=== PATIENT | male | born 1965 | race Two or more races ===

== ENCOUNTER 2022-12-22 17:39 | Inpatient (IN) | payer MEDICAID, OTHER ==
[~2022-12-22] VITALS: Ht 170.2 cm; Wt 63.0 kg
[2022-12-22] MEDS ORDERED: DexAMETHasone SOD PHOS 10MG/1ML VIAL INJ IV ONE (18:30)
[2022-12-22 19:58] LABS: Basophils # (auto) 0 10 ^3/uL (0-0.2); Basophils % (auto) 0.6 % (0.0-2.0); Eosinophils # (auto) 0.1 10 ^3/uL (0-0.8); Eosinophils % (auto) 1.5 % (0.0-7.0); Hematocrit 47.8 % (41.0-53.0); Lymphocytes # (auto) 0.9 10 ^3/uL (0.4-5.4); Lymphocytes % (auto) 17.2 % (10.0-50.0); Mean Corpuscular Hemoglobin 28.6 pg (28.0-32.0); Mean Corpuscular Hgb Conc. 33.5 g/dL (32.0-36.0); Mean Corpuscular Volume 85.6 fL (80.0-100.0); Monocytes # (auto) 0.5 10 ^3/uL (0-1.3); Monocytes % (auto) 8.8 % (0.0-12.0); Neutrophils # (auto) 3.9 10 ^3/uL (1.6-8.6); Neutrophils % (auto) 71.9 % (37.0-80.0); Nucleated Red Blood Cells % 0.2 %; Red Blood Cells 5.58 10^6/uL (4.5-5.90); Red Cell Distribution Width 14.4 % (11.8-14.3); White Blood Cell 5.4 10^3/uL (4.4-10.8)
[2022-12-22 20:14] LABS: Albumin 2.8 g/dL (3.4-5.0); BUN/Creatinine Ratio 19.5; Calcium 9.1 mg/dL (8.5-10.1); Magnesium 1.9 mg/dL (1.6-2.6); Potassium 4.9 mmol/L (3.5-5.1)
[2022-12-22 20:16] LABS: Bilirubin, Total 0.6 mg/dL (0.2-1.0); Total Protein 6.2 g/dL (6.4-8.2)
[2022-12-22] MEDS ORDERED: ONDANSETRON HCL 4 MG/2 ML VIAL IV PRN (21:30)
[2022-12-22 21:48] LABS: INR 1.02 (0.9-1.15); Partial Thromboplastin Time 27.9 sec (24.6-33.4)
[2022-12-22] MEDS ORDERED: ATORVASTATIN 20 MG TAB PO SCH (22:00)
[2022-12-22] MEDS: ACETAMINOPHEN 325 MG TAB PO PRN (22:26)
[2022-12-22 22:56] LABS: Urine Bacteria NONE SEEN /hpf (None Seen); Urine Blood Negative /uL (Negative); Urine Mucus FEW (None Seen); Urine Specific Gravity 1.025 (1.001-1.035); Urine WBC 1 /hpf (0 - 3)
[2022-12-23] MEDS: TEMAZEPAM 15 MG CAP PO PRN (00:17)
[2022-12-23 05:00] VITALS: BP 113/82
[2022-12-23 06:02] LABS: Basophils # (auto) 0 10 ^3/uL (0-0.2); Basophils % (auto) 0.1 % (0.0-2.0); Eosinophils # (auto) 0 10 ^3/uL (0-0.8); Hematocrit 47.1 % (41.0-53.0); Lymphocytes # (auto) 0.5 10 ^3/uL (0.4-5.4); Lymphocytes % (auto) 9.4 % (10.0-50.0); Mean Corpuscular Hemoglobin 29.2 pg (28.0-32.0); Mean Corpuscular Hgb Conc. 33.9 g/dL (32.0-36.0); Mean Corpuscular Volume 86.2 fL (80.0-100.0); Monocytes # (auto) 0.1 10 ^3/uL (0-1.3); Monocytes % (auto) 1.9 % (0.0-12.0); Neutrophils # (auto) 4.8 10 ^3/uL (1.6-8.6); Neutrophils % (auto) 88.6 % (37.0-80.0); Nucleated Red Blood Cells % 0.1 %; Red Blood Cells 5.47 10^6/uL (4.5-5.90); White Blood Cell 5.5 10^3/uL (4.4-10.8)
[2022-12-23 06:11] LABS: Potassium 5.3 mmol/L (3.5-5.1)
[2022-12-23 06:22] LABS: Albumin 2.7 g/dL (3.4-5.0); BUN/Creatinine Ratio 18.7; Bilirubin, Total 0.9 mg/dL (0.2-1.0); Calcium 8.4 mg/dL (8.5-10.1); Total Protein 5.4 g/dL (6.4-8.2)
[2022-12-23 09:00] VITALS: BP 125/70
[2022-12-23] MEDS ORDERED: ASPirin 81 mg TAB PO SCH (10:00)
[2022-12-23] MEDS ORDERED: LISINOPRIL 5 MG TAB PO SCH (10:00)
[2022-12-23 13:00] VITALS: BP 108/68
[2022-12-23] MEDS: ASPirin 81 mg TAB PO SCH (14:51)
[2022-12-23] MEDS ORDERED: SODIUM CHLORIDE 0.9% 1,000 ML IV SCH (15:00)
[2022-12-23 17:00] VITALS: BP 101/51
[2022-12-23] MEDS: SODIUM CHLORIDE 0.9% 1,000 ML IV SCH (19:15)
[2022-12-23] MEDS ORDERED: IOHEXOL 350 MG/ML 100ML IJ ONE (20:19)
[2022-12-23 20:24] LABS: Cholesterol 186 mg/dL (< 200); HDL Cholesterol 55 mg/dL (40-59); LDL Cholesterol 123 mg/dL (< 100); Triglycerides 66 mg/dL (< 150)
[2022-12-23 22:07] VITALS: BP 110/68
[2022-12-23] MEDS: ATORVASTATIN 20 MG TAB PO SCH (23:29)
[2022-12-24 05:06] VITALS: BP 101/63
[2022-12-24 09:00] VITALS: BP 109/67
[2022-12-24] MEDS: ASPirin 81 mg TAB PO SCH (09:19)
[2022-12-24] MEDS: SODIUM CHLORIDE 0.9% 1,000 ML IV SCH (11:55)
[2022-12-24 13:00] VITALS: BP 102/69
[2022-12-24 16:50] VITALS: BP 106/70
[2022-12-24] MEDS: TEMAZEPAM 15 MG CAP PO PRN (21:41)
[2022-12-24] MEDS: ATORVASTATIN 20 MG TAB PO SCH (21:41)
[2022-12-24 22:00] VITALS: BP 112/73
[2022-12-25] MEDS ORDERED: IOHEXOL 350 MG/ML 100ML IJ ONE (04:35)
[2022-12-25] MEDS: SODIUM CHLORIDE 0.9% 1,000 ML IV SCH ×2 (04:35→21:15)
[2022-12-25 05:00] VITALS: BP 108/76
[2022-12-25 09:00] VITALS: BP 120/81
[2022-12-25] MEDS: ASPirin 81 mg TAB PO SCH (09:28)
[2022-12-25 13:00] VITALS: BP 103/76
[2022-12-25 17:03] VITALS: BP 105/69
[2022-12-25] MEDS: TEMAZEPAM 15 MG CAP PO PRN (21:23)
[2022-12-25] MEDS: ATORVASTATIN 20 MG TAB PO SCH (21:23)
[2022-12-25 22:00] VITALS: BP 104/72
[2022-12-26 04:58] VITALS: BP 108/84
[2022-12-26] MEDS: ASPirin 81 mg TAB PO SCH (08:37)
[2022-12-26 09:00] VITALS: BP 107/80
[2022-12-26] MEDS: SODIUM CHLORIDE 0.9% 1,000 ML IV SCH (12:04)
[2022-12-26 13:00] VITALS: BP 107/77
[2022-12-26 17:20] VITALS: BP 105/61
[2022-12-26] MEDS: ATORVASTATIN 20 MG TAB PO SCH (21:25)
[2022-12-26] MEDS: TEMAZEPAM 15 MG CAP PO PRN (21:25)
[2022-12-26 22:00] VITALS: BP 112/80
[2022-12-26] MEDS: ACETAMINOPHEN 325 MG TAB PO PRN (23:07)
[2022-12-27 05:05] VITALS: BP 101/80
[2022-12-27] MEDS: SODIUM CHLORIDE 0.9% 1,000 ML IV SCH ×2 (06:35→23:15)
[2022-12-27 08:42] VITALS: BP 116/83
[2022-12-27] MEDS: ASPirin 81 mg TAB PO SCH (09:38)
[2022-12-27 13:00] VITALS: BP 109/85
[2022-12-27 16:46] VITALS: BP 103/60
[2022-12-27] MEDS: TEMAZEPAM 15 MG CAP PO PRN (21:19)
[2022-12-27] MEDS: ATORVASTATIN 20 MG TAB PO SCH (21:19)
[2022-12-27] MEDS: ACETAMINOPHEN 325 MG TAB PO PRN (21:21)
[2022-12-27 22:00] VITALS: BP 104/72
[2022-12-28 05:00] VITALS: BP 107/80
[2022-12-28 09:12] VITALS: BP 115/89
[2022-12-28] MEDS: ASPirin 81 mg TAB PO SCH (09:21)
[2022-12-28] MEDS ORDERED: ATOR20TA50 PO (12:25)
[2022-12-28] MEDS ORDERED: ASPI-325 PO (12:25)
[2022-12-28 13:00] VITALS: BP 102/75
[2022-12-28] MEDS ORDERED: MORPHINE SULFATE INJ 2 MG/ml SYRG IV PRN (14:00)
[2022-12-28] MEDS: SODIUM CHLORIDE 0.9% 1,000 ML IV SCH (16:00)
[2022-12-28 16:37] VITALS: BP 94/74
[2022-12-28] MEDS: ATORVASTATIN 20 MG TAB PO SCH (21:38)
[2022-12-28 22:00] VITALS: BP 93/69
[2022-12-28] MEDS: ACETAMINOPHEN 325 MG TAB PO PRN (23:11)
[2022-12-28] MEDS: TEMAZEPAM 15 MG CAP PO PRN (23:11)
[2022-12-29 04:55] VITALS: BP 108/78
[2022-12-29] MEDS: SODIUM CHLORIDE 0.9% 1,000 ML IV SCH (08:35)
[2022-12-29 09:00] VITALS: BP 106/62
[2022-12-29] MEDS: ASPirin 81 mg TAB PO SCH (10:00)
[2022-12-29 10:19] VITALS: BP 106/62
== END 2022-12-29 13:53 | disposition home health service (06) | DRG 45 ==
LOC: ER 17:39 → OVERFLOW 21:26 → EAST 12-23 03:55 → CENTRAL 12-23 18:38 → TELE-CENTR 12-23 18:39
PROVIDERS: ADMIT Nurse Practitioner; ATTEND Internal Medicine
DX: I63.511 Cerebral infarction due to unspecified occlusion or stenosis of right middle cerebral artery (principal); E44.0 Moderate protein-calorie malnutrition; G81.94 Hemiplegia, unspecified affecting left nondominant side; I10 Essential (primary) hypertension; R73.9 Hyperglycemia, unspecified; Z20.822 Contact with and (suspected) exposure to COVID-19; Z79.82 Long term (current) use of aspirin; Z79.899 Other long term (current) drug therapy; Z83.3 Family history of diabetes mellitus; Z90.49 Acquired absence of other specified parts of digestive tract; Z68.21 Body mass index [BMI] 21.0-21.9, adult; Z72.0 Tobacco use; Z85.038 Personal history of other malignant neoplasm of large intestine
CPT/HCPCS: 36415; 70450; 70496; 70551; 71045; 80053; 80061; 81001; 83036; 83735; 85025; 85610; 85730; 87426; 93005; 93306; 96374; 97110; 97116; 97163; 97530; 99291; G0378; J1100; J7060